=== PATIENT | female | born 1985 | race Caucasian/White ===

== ENCOUNTER 2016-04-11 10:24 | Emergency (ER) | payer SELFPAY ==
--- NOTE | 2016-04-11 11:25 | ED ---
General Adult HPI - General Chief complaint: Skin/Abscess/Foreign Body Stated complaint: ITCHY RASH ALL OVER X 1 DAY Time Seen by Provider: 04/11/16 11:11 Source: patient, RN notes reviewed Mode of arrival: ambulatory Limitations: no limitations - History of Present Illness Initial comments: Patient 31-year-old female who presents emergency room today with a chief complaint of rash and itching. Does admit that it started to the right shoulder. States that it spread now to her lower back and upper extremities. Patient states very itchy tried Benadryl yesterday little relief. Denies any contacts. Denies any other complaints. Patient denies any recent fever, chills , shortness of breath, chest pain, back pain, abdominal pain, nausea or vomiting , numbness or tingling, dysuria or hematuria, constipation or diarrhea, headaches or visual changes, or any other complaints. - Related Data Previous Rx's Medication Instructions Recorded Acetaminophen-Codeine 300-30mg 1 - 2 each PO Q4HR PRN #30 tab 11/09/15 [Tylenol w/codeine #3] Ibuprofen [Motrin] 600 mg PO Q6HR PRN #40 tab 11/09/15 Famotidine [Pepcid] 20 mg PO BID #20 tablet 04/11/16 diphenhydrAMINE [Benadryl] 1 - 2 tab PO Q6HR PRN #30 capsule 04/11/16 predniSONE 60 mg PO DAILY 5 Days 04/11/16 Allergies Allergy/AdvReac Type Severity Reaction Status Date / Time No Known Allergies Allergy Verified 10/12/15 20:46 Review of Systems ROS Statement: Those systems with pertinent positive or pertinent negative responses have been documented in the HPI. ROS Other: All systems not noted in ROS Statement are negative. Past Medical History Past Medical History: No Reported History History of Any Multi-Drug Resistant Organisms: None Reported Past Surgical History: Tonsillectomy Past Anesthesia/Blood Transfusion Reactions: No Reported Reaction Past Psychological History: No Psychological Hx Reported Smoking Status: Current every day smoker Past Alcohol Use History: None Reported Past Drug Use History: None Reported - Past Family History Father Family Medical History: No Reported History General Exam - General Exam Comments Initial Comments: General: The patient is awake and alert, in no distress, and does not appear acutely ill. Eye: Pupils are equal, round and reactive to light, extra-ocular movements are intact. No nystagmus. There is normal conjunctiva bilaterally. No signs of icterus. Ears, nose, mouth and throat: There are moist mucous membranes and no oral lesions. Neck: The neck is supple, there is no tenderness or JVD. Cardiovascular: There is a regular rate and rhythm. No murmur, rub or gallop is appreciated. Respiratory: Lungs are clear to auscultation, respirations are non-labored, breath sounds are equal. No wheezes, stridor, rales, or rhonchi. Musculoskeletal: Normal ROM, no tenderness. Strength 5/5. Sensation intact. Pulses equal bilaterally 2+. Neurological: A&O x 3. CN II-XII intact, There are no obvious motor or sensory deficits. Coordination appears grossly intact. Speech is normal. Skin: Red raised rash consistent with hives. Psychiatric: Cooperative, appropriate mood & affect, normal judgment. Limitations: no limitations Course Vital Signs 04/11/16 10:42 Temperature 98.3 F Pulse Rate 89 Respiratory 20 Rate Blood Pressure 120/73 O2 Sat by Pulse 98 Oximetry Medical Decision Making - Medical Decision Making Patient will be treated with Benadryl, Pepcid, steroids. Advised follow-up family doctor return if any symptoms increase worsen. Disposition Clinical Impression: Urticaria Disposition: HOME SELF-CARE Condition: Good Instructions: Urticaria (ED) Additional Instructions: Please use medication as discussed. Please follow-up with family doctor in the next 2 days of symptoms have not improved. Please return to emergency room if the symptoms increase or worsen or for any other concerns. Prescriptions: Famotidine [Pepcid] 20 mg PO BID #20 tablet diphenhydrAMINE [Benadryl] 1 - 2 tab PO Q6HR PRN #30 capsule PRN Reason: Allergic Reaction predniSONE 60 mg PO DAILY 5 Days Time of Disposition: 11:25
[2016-04-11 12:22] VITALS: BP 124/77; PULSE 75; RESP 14; TEMP 98.5
== END 2016-04-11 12:22 | disposition home or self-care (01) ==
LOC: EC 10:24
DX: L50.9 Urticaria, unspecified (principal); F17.200 Nicotine dependence, unspecified, uncomplicated
CPT/HCPCS: 99282

== ENCOUNTER 2016-07-10 09:07 | Emergency (ER) | payer OTHER ==
[2016-07-10 09:11] VITALS: BP 125/77; PULSE 94; RESP 16; TEMP 98.3
--- NOTE | 2016-07-10 09:57 | ED ---
General Adult HPI - General Chief complaint: ENT Stated complaint: SORE THROAT Time Seen by Provider: 07/10/16 09:13 Source: patient, RN notes reviewed Mode of arrival: ambulatory Limitations: no limitations - History of Present Illness Initial comments: Patient 31-year-old female who presents emergency room today with multiple complaints. She does admit that she has a sore throat that started this morning her children home with diagnosis strep throat. She also admits that she has bad wisdom tooth on the right lower jaw. States she was at the dentist the other day and was told that she would need an oral surgeon to have it removed. Patient denies any other complaints or symptoms at this time. Patient denies any recent fever, chills, shortness of breath, chest pain, back pain, abdominal pain, nausea or vomiting, numbness or tingling, dysuria or hematuria, constipation or diarrhea, headaches or visual changes, or any other complaints. - Related Data Home Medications Medication Instructions Recorded Confirmed Acetaminophen Tab [Tylenol Tab] 650 mg PO Q4H PRN 07/10/16 07/10/16 Ibuprofen [Motrin] 400 - 800 mg PO Q6HR PRN 07/10/16 07/10/16 Previous Rx's Medication Instructions Recorded Amoxicillin 500 mg PO Q8H 10 Days 07/10/16 Allergies Allergy/AdvReac Type Severity Reaction Status Date / Time No Known Allergies Allergy Verified 07/10/16 09:25 Review of Systems ROS Statement: Those systems with pertinent positive or pertinent negative responses have been documented in the HPI. ROS Other: All systems not noted in ROS Statement are negative. Past Medical History Past Medical History: No Reported History History of Any Multi-Drug Resistant Organisms: None Reported Past Surgical History: Tonsillectomy Past Anesthesia/Blood Transfusion Reactions: No Reported Reaction Past Psychological History: No Psychological Hx Reported Smoking Status: Current every day smoker Past Alcohol Use History: None Reported Past Drug Use History: None Reported - Past Family History Father Family Medical History: No Reported History General Exam - General Exam Comments Initial Comments: General: The patient is awake and alert, in no distress, and does not appear acutely ill. Eye: Pupils are equal, round and reactive to light, extra-ocular movements are intact. No nystagmus. There is normal conjunctiva bilaterally. No signs of icterus. Ears, nose, mouth and throat: There are moist mucous membranes and no oral lesions. Mild redness to the posterior pharynx. Patient does have old fracture of tooth #32. Locally tender in this area with no sign of an abscess. Uvula midline. She swallows without any difficulty. Neck: The neck is supple, there is no tenderness or JVD. Cardiovascular: There is a regular rate and rhythm. No murmur, rub or gallop is appreciated. Respiratory: Lungs are clear to auscultation, respirations are non-labored, breath sounds are equal. No wheezes, stridor, rales, or rhonchi. Musculoskeletal: Normal ROM, no tenderness. Strength 5/5. Sensation intact. Pulses equal bilaterally 2+. Neurological: A&O x 3. CN II-XII intact, There are no obvious motor or sensory deficits. Coordination appears grossly intact. Speech is normal. Skin: Skin is warm and dry and no rashes or lesions are noted. Psychiatric: Cooperative, appropriate mood & affect, normal judgment. Limitations: no limitations Course Vital Signs 07/10/16 09:09 Temperature 98.3 F Pulse Rate 94 Respiratory 16 Rate Blood Pressure 125/77 O2 Sat by Pulse 99 Oximetry Medical Decision Making - Medical Decision Making Patient will be covered with antibiotics that she's had family members at home diagnosed with strep throat along with antibiotic for her dental pain. Advised close follow-up or return if symptoms increase or worsen. Disposition Clinical Impression: Pharyngitis, Pain, dental Disposition: HOME SELF-CARE Condition: Good Instructions: Toothache (ED) Additional Instructions: Please use medication as discussed. Please follow-up with family doctor in the next 2 days of symptoms have not improved. Please return to emergency room if the symptoms increase or worsen or for any other concerns. Prescriptions: Amoxicillin 500 mg PO Q8H 10 Days Referrals: None,Stated [Primary Care Provider] - 1-2 days Dunia Self MD [STAFF PHYSICIAN] - 1-2 days Time of Disposition: 09:56
== END 2016-07-10 10:08 | disposition home or self-care (01) ==
LOC: EC 09:07
DX: J02.9 Acute pharyngitis, unspecified (principal); K08.89 Other specified disorders of teeth and supporting structures; F17.200 Nicotine dependence, unspecified, uncomplicated
CPT/HCPCS: 99282

== ENCOUNTER 2017-07-25 16:54 | Emergency (ER) | payer OTHER ==
[2017-07-25 17:03] VITALS: RESP 18
[2017-07-25] MEDS ORDERED: PENICILLIN G BENZATHINE 1,200,000 UNIT/2 ML SYRINGE IM STA (17:27)
--- NOTE | 2017-07-25 17:33 | ED ---
General Adult HPI - General Chief complaint: Dental/Oral Stated complaint: FACIAL SWELLING Time Seen by Provider: 07/25/17 17:12 Source: patient, RN notes reviewed Mode of arrival: ambulatory Limitations: no limitations - History of Present Illness Initial comments: Patient 32-year-old female presented to the emergency room today with a chief complaint of increased dental swelling and pain. Patient does admit that does have tenderness over tooth #18. She states she did go to the [facility] had a CAT scan obtained 2 days ago. She states that this scan was negative and she was started on antibiotics. Patient states that the area is not improved over the last 2 days. She is had a total of 4 doses of Augmentin. Patient denies any other complaints. Patient denies any recent fever, chills, shortness of breath, chest pain, back pain, abdominal pain, nausea or vomiting, numbness or tingling, headaches or visual changes, or any other complaints. - Related Data Home Medications Medication Instructions Recorded Confirmed Acetaminophen Tab [Tylenol Tab] 650 mg PO Q4H PRN 07/10/16 07/10/16 Ibuprofen [Motrin] 400 - 800 mg PO Q6HR PRN 07/10/16 07/10/16 Previous Rx's Medication Instructions Recorded Amoxicillin 500 mg PO Q8H 10 Days day 07/10/16 Clindamycin HCl [Cleocin] 300 mg PO Q6HR #40 cap 07/25/17 predniSONE 50 mg PO DAILY #3 tab 07/25/17 Allergies Allergy/AdvReac Type Severity Reaction Status Date / Time No Known Allergies Allergy Verified 07/25/17 17:00 Review of Systems ROS Statement: Those systems with pertinent positive or pertinent negative responses have been documented in the HPI. ROS Other: All systems not noted in ROS Statement are negative. Past Medical History Past Medical History: No Reported History History of Any Multi-Drug Resistant Organisms: None Reported Past Surgical History: Tonsillectomy Past Anesthesia/Blood Transfusion Reactions: No Reported Reaction Past Psychological History: No Psychological Hx Reported Smoking Status: Current every day smoker Past Alcohol Use History: None Reported Past Drug Use History: None Reported - Past Family History Father Family Medical History: No Reported History General Exam - General Exam Comments Initial Comments: General: The patient is awake and alert, in no distress, and does not appear acutely ill. Eye: Pupils are equal, round and reactive to light, extra-ocular movements are intact. No nystagmus. There is normal conjunctiva bilaterally. No signs of icterus. Ears, nose, mouth and throat: There are moist mucous membranes and no oral lesions. Tender palpation over tooth #18. Tender in the gumline. No sign of abscess to drain. Uvula midline. Patient swallows without any difficulty. Neck: The neck is supple, there is no tenderness or JVD. Musculoskeletal: Normal ROM, no tenderness. Strength 5/5. Sensation intact. Pulses equal bilaterally 2+. Neurological: A&O x 3. CN II-XII intact, There are no obvious motor or sensory deficits. Coordination appears grossly intact. Speech is normal. Skin: Skin is warm and dry and no rashes or lesions are noted. Psychiatric: Cooperative, appropriate mood & affect, normal judgment. Limitations: no limitations Course Vital Signs 07/25/17 17:00 Temperature 98.8 F Pulse Rate 111 H Respiratory 18 Rate Blood Pressure 123/74 O2 Sat by Pulse 99 Oximetry Medical Decision Making - Medical Decision Making Options were discussed about IV antibiotics versus continued outpatient treatment. Patient's had a total of 4 doses of outpatient antibiotics at this time. She states she's been no improvement. Patient will be given shot of antibiotics here in the emergency room. Patient will be given a prescription for clindamycin advised continue with present prescribed antibiotics. Advised close follow up with dentist over the next 2 days return to emergency room if any symptoms continue and increase or worsen or for any other concerns. Disposition Clinical Impression: Dental abscess Disposition: HOME SELF-CARE Condition: Good Instructions: Dental Abscess (ED) Additional Instructions: Please use medication as discussed. Please follow-up with family doctor in the next 2 days of symptoms have not improved. Please return to emergency room if the symptoms increase or worsen or for any other concerns. Prescriptions: Clindamycin HCl [Cleocin] 300 mg PO Q6HR #40 cap predniSONE 50 mg PO DAILY #3 tab Is patient prescribed a controlled substance at d/c from ED?: No Referrals: Mariya Logan III, MD [Primary Care Provider] - 1-2 days Time of Disposition: 17:30
[2017-07-25 18:39] VITALS: BP 122/72; PULSE 92; TEMP 98.9
== END 2017-07-25 18:39 | disposition home or self-care (01) ==
LOC: EC 16:54
DX: K04.7 Periapical abscess without sinus (principal); F17.200 Nicotine dependence, unspecified, uncomplicated
CPT/HCPCS: 99283; 96372; J0561

== ENCOUNTER 2018-06-03 13:11 | Observation (INO) | payer OTHER ==
--- NOTE | 2018-06-03 15:03 | XR ---
EXAMINATION TYPE: XR chest 2V DATE OF EXAM: 06/03/2018 COMPARISON: 05/07/2013 HISTORY: 33-year-old female with difficulty breathing and shortness of breath TECHNIQUE: PA and lateral views FINDINGS: Heart normal size. Aorta and pulmonary vasculature are within normal limits. No consolidation or pleu ral effusion. IMPRESSION: No acute cardiopulmonary process.
--- NOTE | 2018-06-03 15:04 | ED ---
SOB HPI <Juno Cabrera - Last Filed: 06/03/18 16:06> - General Source: patient, RN notes reviewed Mode of arrival: ambulatory Limitations: no limitations <Lio Howard - Last Filed: 06/03/18 16:08> - General Chief Complaint: Shortness of Breath Stated Complaint: SOB, back pain Time Seen by Provider: 06/03/18 14:00 - History of Present Illness Initial Comments: 33-year-old female presents emergency department chief shortness of breath. Patient states it started 1 week ago has progressively worsen. Patient has not developed back pain which started on her left side, right side now. Patient was seen at [facility] few days ago and was told with emergency from secondary to elevated heart rate of 146. Patient has no history of PE or DVT. Denies any cardiac disease. She is a daily smoker. Patient denies any recent URI symptoms. Patient denies fever, chills, headache, dizziness. Patient states symptoms are worse with exertion. (Lio Howard) - Related Data Home Medications Medication Instructions Recorded Confirmed Acetaminophen Tab [Tylenol Tab] 650 mg PO Q4H PRN 07/10/16 06/03/18 Allergies Allergy/AdvReac Type Severity Reaction Status Date / Time No Known Allergies Allergy Verified 06/03/18 14:07 Review of Systems ROS Other: All systems not noted in ROS Statement are negative. <Juno Cabrera - Last Filed: 06/03/18 16:06> ROS Other: All systems not noted in ROS Statement are negative. <Lio Howard - Last Filed: 06/03/18 16:08> ROS Statement: Those systems with pertinent positive or pertinent negative responses have been documented in the HPI. Past Medical History Past Medical History: No Reported History History of Any Multi-Drug Resistant Organisms: None Reported Past Surgical History: Tonsillectomy Past Anesthesia/Blood Transfusion Reactions: No Reported Reaction Past Psychological History: No Psychological Hx Reported Smoking Status: Current every day smoker Past Alcohol Use History: None Reported Past Drug Use History: None Reported - Past Family History Father Family Medical History: No Reported History <Lio Howard - Last Filed: 06/03/18 16:08> General Exam Limitations: no limitations General appearance: alert, in no apparent distress Head exam: Present: atraumatic, normocephalic, normal inspection Eye exam: Present: normal appearance, PERRL, EOMI. Absent: scleral icterus, conjunctival injection, periorbital swelling ENT exam: Present: normal exam, normal oropharynx, mucous membranes moist Neck exam: Present: normal inspection. Absent: tenderness, meningismus, lymph adenopathy Respiratory exam: Present: normal lung sounds bilaterally. Absent: respiratory distress, wheezes, rales, rhonchi, stridor Cardiovascular Exam: Present: regular rate, normal rhythm, normal heart sounds. Absent: systolic murmur, diastolic murmur, rubs, gallop, clicks Extremities exam: Absent: pedal edema, joint swelling, calf tenderness Neurological exam: Present: alert, oriented X3, CN II-XII intact, reflexes normal. Absent: motor sensory deficit Skin exam: Present: warm, dry, intact, normal color. Absent: rash <Lio Howard - Last Filed: 06/03/18 16:08> Course Vital Signs 06/03/18 06/03/18 13:29 14:32 Temperature 98.5 F Pulse Rate 96 Respiratory 18 25 H Rate Blood Pressure 103/67 O2 Sat by Pulse 100 Oximetry Medical Decision Making - Lab Data Result diagrams: 06/03/18 14:30 06/03/18 14:30 <Juno Cabrera - Last Filed: 06/03/18 16:06> - Lab Data Result diagrams: 06/03/18 14:30 06/03/18 14:30 <Lio Howard - Last Filed: 06/03/18 16:08> - Medical Decision Making Case was discussed with JAVED Vaca. Chart and results reviewed. Case was discussed with Dr. jang, covering for Dr. Logan, who will admit. Cardiology will be placed on consult. (Juno Cabrera) 33-year-old female presented for exertional shortness of breath. Patient is to get [place] tachycardic during ambulation. Patient had pulse ox of upper 90s. Patient will be admitted for exertional shortness of breath, however echo and cardiology evaluation. (Lio Howard) - Lab Data Lab Results 06/03/18 06/03/18 06/03/18 Range/Units 14:30 14:30 14:30 WBC 8.4 (3.8-10.6) k/uL RBC 4.40 (3.80-5.40) m/uL Hgb 13.5 (11.4-16.0) gm/dL Hct 41.1 (34.0-46.0) % MCV 93.5 (80.0-100.0) fL MCH 30.7 (25.0-35.0) pg MCHC 32.9 (31.0-37.0) g/dL RDW 14.0 (11.5-15.5) % Plt Count 316 (150-450) k/uL Neutrophils % 67 % Lymphocytes % 26 % Monocytes % 4 % Eosinophils % 2 % Basophils % 1 % Neutrophils # 5.6 (1.3-7.7) k/uL Lymphocytes # 2.2 (1.0-4.8) k/uL Monocytes # 0.3 (0-1.0) k/uL Eosinophils # 0.2 (0-0.7) k/uL Basophils # 0.1 (0-0.2) k/uL PT 10.5 (9.0-12.0) sec INR 1.0 (<1.2) APTT 26.4 (22.0-30.0) sec D-Dimer 0.46 (<0.60) mg/L FEU Sodium 141 (137-145) mmol/L Potassium 4.4 (3.5-5.1) mmol/L Chloride 111 H (98-107) mmol/L Carbon Dioxide 23 (22-30) mmol/L Anion Gap 7 mmol/L BUN 11 (7-17) mg/dL Creatinine 0.56 (0.52-1.04) mg/dL Est GFR (CKD-EPI)AfAm >90 (>60 ml/min/1.73 sqM) Est GFR (CKD-EPI)NonAf >90 (>60 ml/min/1.73 sqM) Glucose 92 (74-99) mg/dL Calcium 9.3 (8.4-10.2) mg/dL Magnesium 1.9 (1.6-2.3) mg/dL Total Bilirubin 0.5 (0.2-1.3) mg/dL AST 13 L (14-36) U/L ALT 16 (9-52) U/L Alkaline Phosphatase 51 (38-126) U/L Troponin I (0.000-0.034) ng/mL NT-Pro-B Natriuret Pep pg/mL Total Protein 6.7 (6.3-8.2) g/dL Albumin 4.2 (3.5-5.0) g/dL 06/03/18 06/03/18 Range/Units 14:30 14:30 WBC (3.8-10.6) k/uL RBC (3.80-5.40) m/uL Hgb (11.4-16.0) gm/dL Hct (34.0-46.0) % MCV (80.0-100.0) fL MCH (25.0-35.0) pg MCHC (31.0-37.0) g/dL RDW (11.5-15.5) % Plt Count (150-450) k/uL Neutrophils % % Lymphocytes % % Monocytes % % Eosinophils % % Basophils % % Neutrophils # (1.3-7.7) k/uL Lymphocytes # (1.0-4.8) k/uL Monocytes # (0-1.0) k/uL Eosinophils # (0-0.7) k/uL Basophils # (0-0.2) k/uL PT (9.0-12.0) sec INR (<1.2) APTT (22.0-30.0) sec D-Dimer (<0.60) mg/L FEU Sodium (137-145) mmol/L Potassium (3.5-5.1) mmol/L Chloride (98-107) mmol/L Carbon Dioxide (22-30) mmol/L Anion Gap mmol/L BUN (7-17) mg/dL Creatinine (0.52-1.04) mg/dL Est GFR (CKD-EPI)AfAm (>60 ml/min/1.73 sqM) Est GFR (CKD-EPI)NonAf (>60 ml/min/1.73 sqM) Glucose (74-99) mg/dL Calcium (8.4-10.2) mg/dL Magnesium (1.6-2.3) mg/dL Total Bilirubin (0.2-1.3) mg/dL AST (14-36) U/L ALT (9-52) U/L Alkaline Phosphatase (38-126) U/L Troponin I <0.012 (0.000-0.034) ng/mL NT-Pro-B Natriuret Pep 16 pg/mL Total Protein (6.3-8.2) g/dL Albumin (3.5-5.0) g/dL - EKG Data EKG Comments: EKG performed at 14:30 normal sinus rhythm rate of 82 WA 132 QRS 92 QT/QTC 354/413 (Lio Howard) Disposition <Juno Cabrera - Last Filed: 06/03/18 16:06> <Lio Howard - Last Filed: 06/03/18 16:08> Clinical Impression: Exertional shortness of breath, Tachycardia Disposition: ADMITTED IP TO THIS HOSP Condition: Fair Referrals: Mariya Logan III, MD [Primary Care Provider] - 1-2 days
[2018-06-03 15:32] LABS: Basophils # (A) 0.1 k/uL (0-0.2); Basophils % (A) 1 %; Eosinophils # (A) 0.2 k/uL (0-0.7); Eosinophils % (A) 2 %; HCT 41.1 % (34.0-46.0); HGB 13.5 gm/dL (11.4-16.0); Lymphocytes # (A) 2.2 k/uL (1.0-4.8); Lymphocytes % (A) 26 %; MCH 30.7 pg (25.0-35.0); MCHC 32.9 g/dL (31.0-37.0); MCV 93.5 fL (80.0-100.0); Mean Platelet Volume 7.7; Monocytes # (A) 0.3 k/uL (0-1.0); Monocytes % (A) 4 %; Neutrophils # (A) 5.6 k/uL (1.3-7.7); Neutrophils % (A) 67 %; Platelet Count 316 k/uL (150-450); WBC 8.4 k/uL (3.8-10.6)
[2018-06-03 15:44] LABS: ALT 16 U/L (9-52); AST 13 U/L (14-36); Albumin 4.2 g/dL (3.5-5.0); Alkaline Phosphatase 51 U/L (38-126); Anion Gap 7 mmol/L; Blood Urea Nitrogen 11 mg/dL (7-17); Calcium 9.3 mg/dL (8.4-10.2); Carbon Dioxide 23 mmol/L (22-30); Chloride 111 mmol/L (98-107); Glucose 92 mg/dL (74-99); Magnesium 1.9 mg/dL (1.6-2.3); Potassium 4.4 mmol/L (3.5-5.1); Sodium 141 mmol/L (137-145); Total Bilirubin 0.5 mg/dL (0.2-1.3); Total Protein 6.7 g/dL (6.3-8.2)
[2018-06-03 15:50] LABS: D-Dimer 0.46 mg/L FEU (<0.60); Partial Thromboplastin Time 26.4 sec (22.0-30.0); Prothrombin Time 10.5 sec (9.0-12.0)
[2018-06-03] MEDS ORDERED: ACETAMINOPHEN TAB 325 MG TAB PO PRN (16:09)
[2018-06-03] MEDS: MORPHINE SULFATE 4 MG/ML SYRINGE IVP PRN ×2 (16:51→20:18)
[2018-06-03] MEDS: SODIUM CHLORIDE 0.9% 1,000 ML IV SCH (16:52)
--- NOTE | 2018-06-03 19:29 | P.HPIM ---
History of Present Illness this is a pleasant 33 yo F with no significant past medical history and on no medicaiton who present with severe lower back pain on both sides of two days duration , severe non specific pain , with no associated change in urine or b owel habits , no leg weakness, no urine or bowel incontinence. no fever. however pt is complains also from dyspnea more with exertion and dizziness i counseled pt to check her preg test however she refused stating she has contraceptive injection, risks of teratogenicity is explained for the pt from test and she verbalized understanding , she still refused the test on admission her vitals look stable, her cbc, bmp and liver enzymes were unremarkable, her D-Dimer is negative. Review of Systems CONSTITUTIONAL: No fever, no malaise, no fatigue. HEENT: No recent visual problems or hearing problems. Denied any sore throat. CARDIOVASCULAR: No orthopnea, PND, no palpitations, no syncope. PULMONARY: No shortness of breath, no cough, no hemoptysis. GASTROINTESTINAL: No diarrhea, no nausea, no vomiting, no abdominal pain. Normoactive bowel sounds. NEUROLOGICAL: No headaches, no weakness, no numbness. HEMATOLOGICAL: Denies any bleeding or petechiae. GENITOURINARY: Denies any burning micturition, frequency, or urgency. MUSCULOSKELETAL/RHEUMATOLOGICAL: Denies any joint pain, swelling, or any muscle pain. ENDOCRINE: Denies any polyuria or polydipsia. Past Medical History Past Medical History: No Reported History History of Any Multi-Drug Resistant Organisms: None Reported Past Surgical History: Tonsillectomy Past Anesthesia/Blood Transfusion Reactions: No Reported Reaction Past Psychological History: No Psychological Hx Reported Smoking Status: Current every day smoker Past Alcohol Use History: None Reported Past Drug Use History: None Reported - Past Family History Father Family Medical History: No Reported History Medications and Allergies Home Medications Medication Instructions Recorded Confirmed Type Acetaminophen Tab [Tylenol Tab] 650 mg PO Q4H PRN 07/10/16 06/03/18 History Allergies Allergy/AdvReac Type Severity Reaction Status Date / Time No Known Allergies Allergy Verified 06/03/18 14:07 Physical Exam Vitals: Vital Signs Temp Pulse Resp BP Pulse Ox 06/03/18 14:32 25 H 06/03/18 13:29 98.5 F 96 18 103/67 100 Intake and Output 06/03/18 06/03/18 06/03/18 06:59 14:59 22:59 Other: Weight 81.647 kg GENERAL: The patient is alert and oriented x3, not in any acute distress. Well developed, well nourished. HEENT: Pupils are round and equally reacting to light. EOMI. No scleral icterus. No conjunctival pallor. Normocephalic, atraumatic. No pharyngeal erythema. No thyromegaly. CARDIOVASCULAR: S1 and S2 present. No murmurs, rubs, or gallops. PULMONARY: Chest is clear to auscultation, no wheezing or crackles. ABDOMEN: Soft, nontender, nondistended, normoactive bowel sounds. No palpable organomegaly. -MUSCULOSKELETAL: No joint swelling or deformity. bilateral lower back tenderness on the sides. EXTREMITIES: No cyanosis, clubbing, or pedal edema. NEUROLOGICAL: Gross neurological examination did not reveal any focal deficits. no weakness in lower ext 5/5. sensation is intact. meningeal signs are absent SKIN: No rashes. Results CBC & Chem 7: 06/03/18 14:30 06/03/18 14:30 Labs: Abnormal Lab Results - Last 24 Hours (Table) 06/03/18 Range/Units 14:30 Chloride 111 H (98-107) mmol/L AST 13 L (14-36) U/L Assessment and Plan Assessment: dyspnea , mainly exertional lower back pain and tenderness dizziness dehydration Plan: this is a pleasant 33 yo F who presents with back pain , dyspnea . will give some hydration , pain managment , check influenza Labs and medication were reviewed.. Continue same treatment. Continue with symptomatic treatment. Resume home medication. Monitor lytes and vitals. DVT and GI prophylaxis. Further recommendations of the clinical course of the alexi ent DVT prophylaxis: Subcutaneous heparin GI Prophylaxis: Pepcid Prognosis is guarded
[2018-06-03] MEDS: HEPARIN SODIUM,PORCINE 5,000 UNIT/ML 1 ML VIAL SQ SCH ×2 (20:18→23:14)
[2018-06-03] MEDS: FAMOTIDINE 20 MG/2 ML VIAL IV SCH (20:18)
[2018-06-04] MEDS ORDERED: HEPARIN SODIUM,PORCINE 5,000 UNIT/ML 1 ML VIAL SQ SCH
[2018-06-04] MEDS: HYDROcodone/APAP 5-325MG 1 EACH TAB PO PRN ×2 (03:41→09:53)
[2018-06-04] MEDS: FAMOTIDINE 20 MG/2 ML VIAL IV SCH ×2 (09:53→21:51)
[2018-06-04] MEDS: HEPARIN SODIUM,PORCINE 5,000 UNIT/ML 1 ML VIAL SQ SCH ×3 (09:53→23:00)
[2018-06-04 11:02] LABS: T4, Free (Free Thyroxine) 1.06 ng/dL (0.78-2.19)
--- NOTE | 2018-06-04 11:06 | P.CRDCN ---
History of Present Illness History of present illness: This is a pleasant 33-year-old female past medical history significant for chronic daily nicotine dependence. She denies history of hypertension, dyslipidemia, diabetes mellitus or coronary artery disease. She has no significant past medical history in her family. We have asked to see her in consultation secondary to palpitations and shortness of breath. She states approximately 2 weeks ago herself as well as her children suffered from influenza. I'll started feeling better approximately one week ago however she has been having symptoms of shortness of breath and palpitations with exertion. She states she can feel her heart racing fast and then she gets short of breath. She has been feeling these symptoms intermittently through the night when she would get up to go to the bathroom. She states when she lays flat the palpitations subside. She denies associated chest discomfort, nausea, vomiting or diaphoresis. EKG reveals sinus mechanism with no acute ST or T wave abnormalities noted. Chest x-ray is negative for an acute cardiopulmonary process. Laboratory data reviewed, WBC 8.4, hemoglobin 13.5, platelets 316, d-dimer 0.46, sodium 141, potassium 4.4, creatinine 0.56, magnesium 1.9, TSH 0.397 with a free T4 of 1.06. She takes no daily cardiac medications. At the time of my exam: CONSTITUTIONAL: Denies fever. Denies chills. EYES: Denies blurred vision. Denies vision changes. Denies eye pain. EARS, NOSE, MOUTH & THROAT: Denies headache. Denies sore throat. Denies ear pain. CARDIOVASCULAR: Denies chest pain. Denies shortness of breath. Denies orthopnea. Denies PND. Denies palpitations. RESPIRATORY: Denies cough. GASTROINTESTINAL: Denies abdominal pain. Denies diarrhea. Denies constipation. Denies nausea. Denies vomiting. MUSCULOSKELETAL: Denies myalgias. INTEGUMENTARY: Denies pruitis. Denies rash. NEUROLOGIC: Denies numbness. Denies tingling. Denies weakness. PSYCHIATRIC: Denies anxiety. Denies depression. ENDOCRINE: Denies fatigue. Denies weight change. Denies polydipsia. Denies polyurina. GENITOURINARY: Denies burning, hematuria or urgency with micturation. HEMATOLOGIC: Denies history of anemia. Denies bleeding. Blood pressure 92/57 heart rate 66 afebrile maintaining oxygen saturation on room air GENERAL: This is a 33-year-old female in no apparent distress at the time of my examination. HEENT: Head is atraumatic, normocephalic. Pupils are equal, round. Sclerae anicteric. Conjunctivae are clear. Mucous membranes of the mouth are moist. Neck is supple. There is no jugular venous distention. No carotid bruit is heard. LUNGS: Clear to auscultation no wheezes, rales or rhonchi. No chest wall tenderness is noted on palpation or with deep breathing. HEART: Regular rate and rhythm without murmurs, rubs or gallops. S1 and S2 heard. ABDOMEN: Soft, nontender. Bowel sounds are heard. No organomegaly noted. EXTREMITIES: No evidence of peripheral edema and no calf tenderness noted. VASCULAR: Radial and dorsalis pedis pulses palpated, no evidence of clubbing. NEUROLOGIC: Patient is awake, alert and oriented x3. ASSESSMENT Palpitations Chronic nicotine dependence PLAN Thyroid panel has been requested and reviewed, to be handled by the primary care team. Obtain 2-D echocardiogram and Doppler study to assess cardiac structure and function. Overall she has been feeling these palpitations and heart racing through the night and telemetry tracings have been unremarkable. There is no evidence for an acute arrhythmia. Advised her to increase her oral intake of water, avoid caffeine and quit smoking. Thank you kindly for this consultation. Nurse Practitioner note has been reviewed, I agree with a documented findings and plan of care. Patient was seen and examined. Past Medical History Past Medical History: No Reported History History of Any Multi-Drug Resistant Organisms: None Reported Past Surgical History: Tonsillectomy Past Anesthesia/Blood Transfusion Reactions: No Reported Reaction Past Psychological History: No Psychological Hx Reported Smoking Status: Current every day smoker Past Alcohol Use History: None Reported Past Drug Use History: None Reported - Past Family History Father Family Medical History: No Reported History Medications and Allergies Home Medications Medication Instructions Recorded Confirmed Type Acetaminophen Tab [Tylenol Tab] 650 mg PO Q4H PRN 07/10/16 06/03/18 History Allergies Allergy/AdvReac Type Severity Reaction Status Date / Time No Known Allergies Allergy Verified 06/03/18 14:07 Physical Exam Vitals: Vital Signs Temp Pulse Pulse Resp BP BP Pulse Ox 06/04/18 07:10 98.6 F 66 18 92/57 98 06/04/18 03:55 98.5 F 73 16 103/68 98 06/04/18 03:33 16 06/03/18 23:56 98.6 F 76 16 101/64 100 06/03/18 23:11 16 06/03/18 19:52 16 06/03/18 19:42 98.0 F 83 16 107/70 100 06/03/18 16:32 80 18 115/71 98 06/03/18 14:32 88 18 117/81 97 06/03/18 13:29 98.5 F 96 18 103/67 100 Intake and Output 06/03/18 06/04/18 06/04/18 22:59 06:59 14:59 Intake Total 375 Balance 375 Intake: IV 375 Sodium Chloride 0.9% 1, 375 000 ml @ 75 mls/hr IV . [id number] [facility] Rx#:[id number] Other: Voiding Method Toilet Toilet # Voids 2 Results 06/03/18 14:30 06/03/18 14:30 Cardiac Enzymes 06/03/18 06/03/18 Range/Units 14:30 14:30 AST 13 L (14-36) U/L Troponin I <0.012 (0.000-0.034) ng/mL Coagulation 06/03/18 Range/Units 14:30 PT 10.5 (9.0-12.0) sec APTT 26.4 (22.0-30.0) sec CBC 06/03/18 Range/Units 14:30 WBC 8.4 (3.8-10.6) k/uL RBC 4.40 (3.80-5.40) m/uL Hgb 13.5 (11.4-16.0) gm/dL Hct 41.1 (34.0-46.0) % Plt Count 316 (150-450) k/uL Comprehensive Metabolic Panel 06/03/18 Range/Units 14:30 Sodium 141 (137-145) mmol/L Potassium 4.4 (3.5-5.1) mmol/L Chloride 111 H (98-107) mmol/L Carbon Dioxide 23 (22-30) mmol/L BUN 11 (7-17) mg/dL Creatinine 0.56 (0.52-1.04) mg/dL Glucose 92 (74-99) mg/dL Calcium 9.3 (8.4-10.2) mg/dL AST 13 L (14-36) U/L ALT 16 (9-52) U/L Alkaline Phosphatase 51 (38-126) U/L Total Protein 6.7 (6.3-8.2) g/dL Albumin 4.2 (3.5-5.0) g/dL Current Medications Generic Name Dose Route Start Last Admin Trade Name Freq PRN Reason Stop Dose Admin Acetaminophen 650 mg 06/03/18 16:09 Tylenol Tab PO Q6HR PRN Mild Pain or Fever > 100.5 Hydrocodone Bitart/Acetaminophen 1 each 06/03/18 16:09 06/04/18 03:41 Morrow 5-325 PO 1 each Q4HR PRN Administration Moderate Pain Famotidine 20 mg 06/03/18 21:00 06/03/18 20:18 Pepcid IV 20 mg Q12HR FLACO Administration Heparin Sodium (Porcine) 5,000 unit 06/03/18 19:30 06/03/18 23:14 Heparin SQ Not Given Q8HR FLACO Sodium Chloride 1,000 mls @ 75 mls/hr 06/03/18 16:45 06/03/18 16:52 Saline 0.9% IV 75 mls/hr .[id number] FLACO Administration Morphine Sulfate 4 mg 06/03/18 16:19 06/03/18 20:18 Morphine Sulfate (Inj) IVP 4 mg Q4HR PRN Administration Pain Intake and Output 06/03/18 06/04/18 06/04/18 22:59 06:59 14:59 Intake Total 375 Balance 375 Intake: IV 375 Sodium Chloride 0.9% 1, 375 000 ml @ 75 mls/hr IV . [id number] [facility] Rx#:[id number] Other: Voiding Method Toilet Toilet # Voids 2 06/03/18 14:30 06/03/18 14:30
--- NOTE | 2018-06-04 12:45 | ECHOF ---
Referral Reason:sob MEASUREMENTS -------- HEIGHT: 162.6 cm WEIGHT: 81.6 kg BP: 103/68 IVSd: 0.9 cm (0.6 - 1.1) LVIDd: 4.8 cm (3.9 - 5.3) LVPWd: 1.2 cm (0.6 - 1.1) IVSs: 1.4 cm LVIDs: 2.9 cm LVPWs: 1.4 cm LA Diam: 3.2 cm (2.7 - 3.8) MV EXCURSION: 19.783 mm (> 18.000) MV EF SLOPE: 73 mm/s (70 - 150) EPSS: 0.3 cm MV E Andre: 0.74 m/s MV DecT: 127 ms MV A Andre: 0.63 m/s MV E/A Ratio: 1.17 RAP: 5.00 mmHg RVSP: 20.32 mmHg FINDINGS -------- Sinus rhythm. This was a technically good study. LV size, wall thickness and systolic function are normal, with an EF greater than 55%. The left catrachito tricular size is normal. The right ventricle is normal in size. The left atrial size is normal. The right atrial size is normal. Interatrial and interventricular septum intact. The aortic valve is trileaflet, and appears structurally normal. No aortic stenosis or regurgitation. Mild mitral regurgitation is present. Mild tricuspid regurgitation present. There is no evidence of pulmonary hypertension. The right v entricular systolic pressure, as measured by Doppler, is 20.32mmHg. There is no pulmonic regurgitation present. The aortic root size is normal. Normal inferior vena cava with normal inspiratory collapse consistent with estimated right atrial pre ssure of 5 mmHg. There is a trivial pericardial effusion present. CONCLUSIONS -------- 1. LV size, wall thickness and systolic function are normal, with an EF greater than 55%. 2. The left ventricular size is normal. 3. The right ventricle is normal in size. 4. The left atrial size is normal. 5. The right atrial size is normal. 6. Interatrial and interventricular septum intact. 7. The aortic valve is trileaflet, and appears structurally normal. No aortic stenosis or regurgitati on. 8. Mild mitral regurgitation is present. 9. Mild tricuspid regurgitation present. 10. There is no evidence of pulmonary hypertension. 11. The right ventricular systolic pressure, as measured by Doppler, is 20.32mmHg. 12. There is no pulmonic regurgitation present. 13. The aortic root size is normal. 14. Normal inferior vena cava with normal inspiratory collapse consistent with estimated right atrial pressure of 5 mmHg. 15. There is a trivial pericardial effusion present. [employer]: Divine Mueller RDCS
[2018-06-04] MEDS: HYDROcodone/APAP 10-325MG 1 EACH TAB PO PRN ×3 (14:59→23:00)
--- NOTE | 2018-06-04 16:40 | P.PN ---
Subjective this is a pleasant 33 yo F with no significant past medical history and on no medicaiton who present with severe lower back pain on both sides of two days duration , severe non specific pain , with no associated change in urine or bowel habits , no leg weakness, no urine or bowel incontinence. no fever. however pt is complains also from dyspnea more with exertion and dizziness i counseled pt to check her preg test however she refused stating she has contraceptive injection, risks of teratogenicity is explained for the pt from test and she verbalized understanding , she still refused the test on admission her vitals look stable, her cbc, bmp and liver enzymes were unremarkable, her D-Dimer is negative. 06/04/2018 Patient showing slight improvement in her pain control, she is more comfortable at rest however she becomes more symptomatic when she tried to move, hemodynamically she is a stable. Patient has been evaluated by cardiology team who cleared her for discharge after checking her echocardiogram. We will increase her pain medication, and ask physical therapy to evaluate the patient Objective - Vital Signs Vital signs: Vital Signs Temp 98.3 F 06/04/18 15:40 Pulse 71 06/04/18 15:40 Resp 18 06/04/18 15:40 BP 108/69 06/04/18 15:40 Pulse Ox 100 06/04/18 15:40 Intake & Output 06/03/18 06/04/18 06/04/18 18:59 06:59 18:59 Intake Total 375 400 Balance 375 400 Weight 81.647 kg Intake: IV 375 Sodium Chloride 0.9% 1, 375 000 ml @ 75 mls/hr IV . [id number] [facility] Rx#:[id number] Oral 400 Other: Voiding Method Toilet Toilet # Voids 2 1 - Exam GENERAL: The patient is alert and oriented x3, not in any acute distress. Well developed, well nourished. HEENT: Pupils are round and equally reacting to light. EOMI. No scleral icterus. No conjunctival pallor. Normocephalic, atraumatic. No pharyngeal erythema. No thyromegaly. CARDIOVASCULAR: S1 and S2 present. No murmurs, rubs, or gallops. PULMONARY: Chest is clear to auscultation, no wheezing or crackles. ABDOMEN: Soft, nontender, nondistended, normoactive bowel sounds. No palpable o rganomegaly. -MUSCULOSKELETAL: No joint swelling or deformity. bilateral lower back tenderness on the sides. EXTREMITIES: No cyanosis, clubbing, or pedal edema. NEUROLOGICAL: Gross neurological examination did not reveal any focal deficits. no weakness in lower ext 5/5. sensation is intact. meningeal signs are absent SKIN: No rashes. - Labs CBC & Chem 7: 06/03/18 14:30 06/03/18 14:30 Labs: Abnormal Lab Results - Last 24 Hours (Table) 06/03/18 Range/Units 14:30 TSH 0.397 L (0.465-4.680) mIU/L Assessment and Plan Assessment: dyspnea , mainly exertional lower back pain and tenderness dizziness dehydration Plan: this is a pleasant 33 yo F who presents with back pain , dyspnea . will give some hydration , pain managment , check influenza Labs and medication were reviewed.. Continue same treatment. Continue with symptomatic treatment. Resume home medication. Monitor lytes and vitals. DVT and GI prophylaxis. Further recommendations of the clinical course of the patient DVT prophylaxis: Subcutaneous heparin GI Prophylaxis: Pepcid Prognosis is guarded
[2018-06-04] MEDS: SODIUM CHLORIDE 0.9% 1,000 ML IV SCH ×2 (21:56→21:57)
[2018-06-05] MEDS: HYDROcodone/APAP 10-325MG 1 EACH TAB PO PRN ×4 (02:55→15:30)
[2018-06-05] MEDS: FAMOTIDINE 20 MG/2 ML VIAL IV SCH (09:45)
[2018-06-05] MEDS: HEPARIN SODIUM,PORCINE 5,000 UNIT/ML 1 ML VIAL SQ SCH ×2 (09:46→15:31)
[2018-06-05 16:28] VITALS: BP 104/64; PULSE 69; RESP 16; TEMP 98.6
--- NOTE | 2018-06-05 17:04 | P.DS ---
Providers Date of admission: 06/03/18 16:07 Attending physician: Chino Colby MD Consults: 06/03/18 16:09 Consult Physician Urgent Consulting Provider: Reed Stone Consult Reason/Comments: Exertional shortness of breath Do you want consulting provider notified?: Yes Primary care physician: Mariya Logan [facility] Course: Diagnoses: Low back pain on both sides, mostly musculoskeletal. Improving Dyspnea on exertion and dizziness, mostly related to her back pain and anxiety. Resolved with controlling her back pain Dehydration. Resolved Difficulty walking, secondary to above. Completely resolved and patient is walking normally upon discharge Hospital course: This is a pleasant 53 years old female who presents with severe low back pain on both sides of 2-3 days duration associated with nonspecific symptoms of dizziness and dyspnea, mostly related to her pain and her dehydration. Patient was admitted to the observation unit and she was managed with parenteral hydration and pain management. Patient was treated with Narco 5-325 milligrams, however she still complained from her back pain. And after Narco increased to 10-325 mg every 4 hours her pain is controlled and it was 0/10 at certain points and more tolerable by the patient. Patient had a normal get up and go test where she couldn't ambulate easily and walked briskly without any breathing difficulty, no chest pain or dizziness. Patient felt a lot better and she wanted to go home, follow-up appointment was made for her with Dr. Logan her PCP in one week and she agrees and she said we will go to visit him on the time and date appointed for her. On the day of discharge patient has no chest pain, no dyspnea, no abdominal pain, no nausea vomiting, no change in urine or bowel habits. No fever. No weakness in arms or legs. No paresthesia/numbness. Problems and management plan were discussed with the patient and she verbalized understanding and acceptance Patient was found stable and can discharge home however she needs follow-up as an outpatient. discharge exam Gen: patient is a AAOx3, no distress CVS: S1-S2, RRR, no murmur Lungs: B/L CTA, no wheezing Abdomen: soft, no distention, no tenderness, positive bowel sounds Extremity: no leg edema or induration Musculoskeletal: Mild bilateral lower back tenderness, no tenderness in the middle. Time spent more than 35 minutes Patient Condition at Discharge: Fair Plan - Discharge Summary Discharge Rx Participant: No New Discharge Prescriptions: New Ibuprofen 600 mg PO Q8HR PRN 4 Days #12 tablet PRN Reason: Pain Lidocaine 5% Patch [Lidoderm 5% Patch] 1 patch TOPICAL DAILY 7 Days #7 patch HYDROcodone/APAP 10-325MG [[place] 10-325] 1 each PO Q6HR PRN 3 Days #12 tab PRN Reason: Pain Famotidine [Pepcid] 20 mg PO DAILY 7 Days #7 tablet Acetaminophen Tab [Tylenol] 325 mg PO Q6HR PRN 7 Days #28 tab PRN Reason: Mild Pain Or Fever > 100.5 Continue Acetaminophen Tab [Tylenol] 650 mg PO Q4H PRN PRN Reason: Pain Discharge Medication List Acetaminophen Tab [Tylenol] 650 mg PO Q4H PRN 07/10/16 [History] Acetaminophen Tab [Tylenol] 325 mg PO Q6HR PRN 7 Days #28 tab 06/05/18 [Rx] Famotidine [Pepcid] 20 mg PO DAILY 7 Days #7 tablet 06/05/18 [Rx] HYDROcodone/APAP 10-325MG [[place] 10-325] 1 each PO Q6HR PRN 3 Days #12 tab 06/05/18 [Rx] Ibuprofen 600 mg PO Q8HR PRN 4 Days #12 tablet 06/05/18 [Rx] Lidocaine 5% Patch [Lidoderm 5% Patch] 1 patch TOPICAL DAILY 7 Days #7 patch 06/05/18 [Rx] Follow up Appointment(s)/Referral(s): Mariya Logan III, MD [Primary Care Provider] - 06/10/18 6:00 pm Activity/Diet/Wound Care/Special Instructions: regular diet activity is limited till you see your doctor try to avoid twisting, lifting heavy objects or bending Discharge Disposition: HOME SELF-CARE
[2018-06-05] MEDS: SODIUM CHLORIDE 0.9% 1,000 ML IV SCH (17:15)
== END 2018-06-05 17:15 | disposition home or self-care (01) ==
LOC: EC 13:11 → 1SOBS 16:07
PROVIDERS: ADMIT Internal Medicine; ATTEND Internal Medicine
DX: M54.5 Low back pain (principal); E86.0 Dehydration; R06.09 Other forms of dyspnea; F41.9 Anxiety disorder, unspecified; R00.2 Palpitations; R26.2 Difficulty in walking, not elsewhere classified; F17.200 Nicotine dependence, unspecified, uncomplicated
CPT/HCPCS: 96361 ×3; 96372 ×3; 96375; 96376 ×3; 96374; 99285; 36415; 93005; 93306; 85379; 84439; 83880; 80053; 84443; 83735; 84484; 85025; 85610; 85730; 87502; 71046; G0378 ×3; J2270; J1644 ×3

== ENCOUNTER 2018-06-13 16:42 | Emergency (ER) | payer OTHER ==
[2018-06-13 16:47] VITALS: TEMP 99
[2018-06-13] MEDS ORDERED: SODIUM CHLORIDE 0.9% 1,000 ML IV STA (16:54)
[2018-06-13] MEDS ORDERED: MORPHINE SULFATE 4 MG/ML SYRINGE IVP STA (17:38)
--- NOTE | 2018-06-13 17:40 | ED ---
General Adult HPI - General Chief complaint: Arrhythmia/Palpitations Stated complaint: DOC, HIGH HEARTRATE, LOWER BACK PAIN Time Seen by Provider: 06/13/18 16:54 Source: patient, RN notes reviewed, old records reviewed Mode of arrival: ambulatory Limitations: no limitations - History of Present Illness Initial comments: 33-year-old female presents for evaluation of palpitations and dyspnea and back pain. Patient was admitted to the hospital within the past several weeks with chief complaint of palpitations. She states that this workup (essentially normal and was instructed to follow up as an outpatient. She was scheduled for a Holter monitor as well as x-rays of her thoracic and lumbar spine. She states that today her symptoms have worsened. She felt increasing palpitations. She's had significant lower back pain as well as mid thoracic back pain. Denies dysuria or hematuria. Denies any specific injury or trauma. She does report subjective fever and chills. Said nausea with no vomiting. No diarrhea. No lower extremity pain or swelling. She is currently on Depo-Provera, denies . - Related Data Home Medications Medication Instructions Recorded Confirmed Medroxyprogesterone Acetate 150 mg IM Q84D 06/13/18 06/13/18 [Depo-Provera] Previous Rx's Medication Instructions Recorded Famotidine [Pepcid] 20 mg PO DAILY 7 Days #7 tablet 06/05/18 Allergies Allergy/AdvReac Type Severity Reaction Status Date / Time No Known Allergies Allergy Verified 06/13/18 17:21 Review of Systems ROS Statement: Those systems with pertinent positive or pertinent negative responses have been documented in the HPI. ROS Other: All systems not noted in ROS Statement are negative. Past Medical History Past Medical History: No Reported History History of Any Multi-Drug Resistant Organisms: None Reported Past Surgical History: Tonsillectomy Past Anesthesia/Blood Transfusion Reactions: No Reported Reaction Past Psychological History: No Psychological Hx Reported Smoking Status: Current every day smoker Past Alcohol Use History: None Reported Past Drug Use History: None Reported - Past Family History Father Family Medical History: No Reported History General Exam Limitations: no limitations General appearance: alert, in no apparent distress Head exam: Present: atraumatic, normocephalic Eye exam: Present: normal appearance, PERRL ENT exam: Present: mucous membranes dry Neck exam: Present: normal inspection. Absent: tenderness, meningismus Respiratory exam: Present: normal lung sounds bilaterally. Absent: respiratory distress, wheezes Cardiovascular Exam: Present: normal rhythm, tachycardia GI/Abdominal exam: Present: soft. Absent: distended, tenderness, guarding Extremities exam: Present: normal capillary refill. Absent: pedal edema, calf tenderness Back exam: Present: normal inspection, CVA tenderness (R), CVA tenderness (L), paraspinal tenderness Neurological exam: Present: alert, oriented X3 Psychiatric exam: Present: normal affect, normal mood Skin exam: Present: warm, dry, intact. Absent: cyanosis, diaphoretic Course Vital Signs 06/13/18 06/13/18 06/13/18 16:43 18:12 18:46 Temperature 99.0 F Pulse Rate 132 H 98 Pulse Rate [ 105 H [employer] ] Respiratory 18 20 Rate Blood Pressure 127/75 121/64 O2 Sat by Pulse 97 96 Oximetry EKG Findings - EKG Comments: EKG Findings:: EKG: Sinus tachycardia, rate of 106 DE interval 124, QRS duration 82, QTC 4:30, no ST segment elevation, no signs of arrhythmia Medical Decision Making - Medical Decision Making 33-year-old female presenting with palpitations thoracic and lumbar back pain and dyspnea. Patient has nonischemic EKG normal sinus rhythm rate of 106. She has a chest x-ray which is negative for acute cardiac pulmonary disease. X-rays of the lumbar and thoracic spine were performed is negative for any acute bony abnormality. She has a normal CBC, normal CMP, troponin is negative. Urinalysis negative, urine drug screen is positive for OxyContin and benzodiazepines. D-dimer is elevated at 0.57. CT angiography was performed this is negative for pulmonary embolism. Patient reevaluated, heart rate improves. She is scheduled for a thermometer which she is getting tomorrow. She will continue with this plan. She will follow-up with her primary care physician. Return with worsening or changing symptoms. - Lab Data Result diagrams: 06/13/18 17:58 06/13/18 17:58 Lab Results 06/13/18 06/13/18 06/13/18 Range/Units 17:40 17:58 17:58 WBC 7.5 (3.8-10.6) k/uL RBC 4.51 (3.80-5.40) m/uL Hgb 13.5 (11.4-16.0) gm/dL Hct 43.0 (34.0-46.0) % MCV 95.4 (80.0-100.0) fL MCH 30.0 (25.0-35.0) pg MCHC 31.5 (31.0-37.0) g/dL RDW 14.4 (11.5-15.5) % Plt Count 301 (150-450) k/uL Neutrophils % 46 % Lymphocytes % 42 % Monocytes % 5 % Eosinophils % 3 % Basophils % 1 % Neutrophils # 3.4 (1.3-7.7) k/uL Lymphocytes # 3.2 (1.0-4.8) k/uL Monocytes # 0.4 (0-1.0) k/uL Eosinophils # 0.2 (0-0.7) k/uL Basophils # 0.1 (0-0.2) k/uL PT (9.0-12.0) sec INR (<1.2) APTT (22.0-30.0) sec D-Dimer (<0.60) mg/L FEU Sodium 139 (137-145) mmol/L Potassium 4.6 (3.5-5.1) mmol/L Chloride 112 H (98-107) mmol/L Carbon Dioxide 20 L (22-30) mmol/L Anion Gap 7 mmol/L BUN 12 (7-17) mg/dL Creatinine 0.49 L (0.52-1.04) mg/dL Est GFR (CKD-EPI)AfAm >90 (>60 ml/min/1.73 sqM) Est GFR (CKD-EPI)NonAf >90 (>60 ml/min/1.73 sqM) Glucose 74 (74-99) mg/dL Plasma Lactic Acid Francisco (0.7-2.0) mmol/L Calcium 9.1 (8.4-10.2) mg/dL Magnesium 2.0 (1.6-2.3) mg/dL Total Bilirubin 0.5 (0.2-1.3) mg/dL AST 19 (14-36) U/L ALT 23 (9-52) U/L Alkaline Phosphatase 53 (38-126) U/L Troponin I (0.000-0.034) ng/mL Total Protein 6.8 (6.3-8.2) g/dL Albumin 4.1 (3.5-5.0) g/dL TSH 0.541 (0.465-4.680) mIU/L Urine Color Yellow Urine Appearance Clear (Clear) Urine pH 6.0 (5.0-8.0) Ur Specific [place] 1.022 (1.001-1.035) Urine Protein Negative (Negative) Urine Glucose (UA) Negative (Negative) Urine Ketones Negative (Negative) Urine Blood Negative (Negative) Urine Nitrite Negative (Negative) Urine Bilirubin Negative (Negative) Urine Urobilinogen <2.0 (<2.0) mg/dL Ur Leukocyte Esterase Negative (Negative) Urine HCG, Qual (Not Detectd) Urine Opiates Screen Not Detected (NotDetected) Ur Oxycodone Screen Detected H (NotDetected) Urine Methadone Screen Not Detected (NotDetected) Ur Propoxyphene Screen Not Detected (NotDetected) Ur Barbiturates Screen Not Detected (NotDetected) U Tricyclic Antidepress Not Detected (NotDetected) Ur Phencyclidine Scrn Not Detected (NotDetected) Ur Amphetamines Screen Not Detected (NotDetected) U Methamphetamines Scrn Not Detected (NotDetected) U Benzodiazepines Scrn Detected H (NotDetected) Urine Cocaine Screen Not Detected (NotDetected) U Marijuana (THC) Screen Not Detected (NotDetected) 06/13/18 06/13/18 06/13/18 Range/Units 17:58 17:58 17:58 WBC (3.8-10.6) k/uL RBC (3.80-5.40) m/uL Hgb (11.4-16.0) gm/dL Hct (34.0-46.0) % MCV (80.0-100.0) fL MCH (25.0-35.0) pg MCHC (31.0-37.0) g/dL RDW (11.5-15.5) % Plt Count (150-450) k/uL Neutrophils % % Lymphocytes % % Monocytes % % Eosinophils % % Basophils % % Neutrophils # (1.3-7.7) k/uL Lymphocytes # (1.0-4.8) k/uL Monocytes # (0-1.0) k/uL Eosinophils # (0-0.7) k/uL Basophils # (0-0.2) k/uL PT 9.5 (9.0-12.0) sec INR 0.9 (<1.2) APTT 25.4 (22.0-30.0) sec D-Dimer 0.57 (<0.60) mg/L FEU Sodium (137-145) mmol/L Potassium (3.5-5.1) mmol/L Chloride (98-107) mmol/L Carbon Dioxide (22-30) mmol/L Anion Gap mmol/L BUN (7-17) mg/dL Creatinine (0.52-1.04) mg/dL Est GFR (CKD-EPI)AfAm (>60 ml/min/1.73 sqM) Est GFR (CKD-EPI)NonAf (>60 ml/min/1.73 sqM) Glucose (74-99) mg/dL Plasma Lactic Acid Francisco 1.0 (0.7-2.0) mmol/L Calcium (8.4-10.2) mg/dL Magnesium (1.6-2.3) mg/dL Total Bilirubin (0.2-1.3) mg/dL AST (14-36) U/L ALT (9-52) U/L Alkaline Phosphatase (38-126) U/L Troponin I <0.012 (0.000-0.034) ng/mL Total Protein (6.3-8.2) g/dL Albumin (3.5-5.0) g/dL TSH (0.465-4.680) mIU/L Urine Color Urine Appearance (Clear) Urine pH (5.0-8.0) Ur Specific [place] (1.001-1.035) Urine Protein (Negative) Urine Glucose (UA) (Negative) Urine Ketones (Negative) Urine Blood (Negative) Urine Nitrite (Negative) Urine Bilirubin (Negative) Urine Urobilinogen (<2.0) mg/dL Ur Leukocyte Esterase (Negative) Urine HCG, Qual (Not Detectd) Urine Opiates Screen (NotDetected) Ur Oxycodone Screen (NotDetected) Urine Methadone Screen (NotDetected) Ur Propoxyphene Screen (NotDetected) Ur Barbiturates Screen (NotDetected) U Tricyclic Antidepress (NotDetected) Ur Phencyclidine Scrn (NotDetected) Ur Amphetamines Screen (NotDetected) U Methamphetamines Scrn (NotDetected) U Benzodiazepines Scrn (NotDetected) Urine Cocaine Screen (NotDetected) U Marijuana (THC) Screen (NotDetected) 06/13/18 Range/Units 18:03 WBC (3.8-10.6) k/uL RBC (3.80-5.40) m/uL Hgb (11.4-16.0) gm/dL Hct (34.0-46.0) % MCV (80.0-100.0) fL MCH (25.0-35.0) pg MCHC (31.0-37.0) g/dL RDW (11.5-15.5) % Plt Count (150-450) k/uL Neutrophils % % Lymphocytes % % Monocytes % % Eosinophils % % Basophils % % Neutrophils # (1.3-7.7) k/uL Lymphocytes # (1.0-4.8) k/uL Monocytes # (0-1.0) k/uL Eosinophils # (0-0.7) k/uL Basophils # (0-0.2) k/uL PT (9.0-12.0) sec INR (<1.2) APTT (22.0-30.0) sec D-Dimer (<0.60) mg/L FEU Sodium (137-145) mmol/L Potassium (3.5-5.1) mmol/L Chloride (98-107) mmol/L Carbon Dioxide (22-30) mmol/L Anion Gap mmol/L BUN (7-17) mg/dL Creatinine (0.52-1.04) mg/dL Est GFR (CKD-EPI)AfAm (>60 ml/min/1.73 sqM) Est GFR (CKD-EPI)NonAf (>60 ml/min/1.73 sqM) Glucose (74-99) mg/dL Plasma Lactic Acid Francisco (0.7-2.0) mmol/L Calcium (8.4-10.2) mg/dL Magnesium (1.6-2.3) mg/dL Total Bilirubin (0.2-1.3) mg/dL AST (14-36) U/L ALT (9-52) U/L Alkaline Phosphatase (38-126) U/L Troponin I (0.000-0.034) ng/mL Total Protein (6.3-8.2) g/dL Albumin (3.5-5.0) g/dL TSH (0.465-4.680) mIU/L Urine Color Urine Appearance (Clear) Urine pH (5.0-8.0) Ur Specific [place] (1.001-1.035) Urine Protein (Negative) Urine Glucose (UA) (Negative) Urine Ketones (Negative) Urine Blood (Negative) Urine Nitrite (Negative) Urine Bilirubin (Negative) Urine Urobilinogen (<2.0) mg/dL Ur Leukocyte Esterase (Negative) Urine HCG, Qual Not Detected (Not Detectd) Urine Opiates Screen (NotDetected) Ur Oxycodone Screen (NotDetected) Urine Methadone Screen (NotDetected) Ur Propoxyphene Screen (NotDetected) Ur Barbiturates Screen (NotDetected) U Tricyclic Antidepress (NotDetected) Ur Phencyclidine Scrn (NotDetected) Ur Amphetamines Screen (NotDetected) U Methamphetamines Scrn (NotDetected) U Benzodiazepines Scrn (NotDetected) Urine Cocaine Screen (NotDetected) U Marijuana (THC) Screen (NotDetected) Disposition Clinical Impression: Palpitations Disposition: HOME SELF-CARE Condition: Fair Instructions (If sedation given, give patient instructions): Heart Palpitations (ED) Is patient prescribed a controlled substance at d/c from ED?: No Referrals: Mariya Logan III, MD [Primary Care Provider] - 1-2 days Time of Disposition: 19:55
[2018-06-13 17:56] LABS: Appearance,Urine Clear (Clear); Bilirubin,Urine Negative (Negative); Blood,Urine Negative (Negative); Color,Urine Yellow; Glucose,Urine (UA) Negative (Negative); Ketones,Urine Negative (Negative); Leukocyte Esterase,Urine Negative (Negative); Nitrite,Urine Negative (Negative); Protein,Urine Negative (Negative); Specific Gravity,Urine 1.022 (1.001-1.035); Urobilinogen,Urine <2.0 mg/dL (<2.0)
[2018-06-13 18:09] LABS: Phencyclidine Screen,Urine Not Detected (NotDetected); Urn Cannabinoid Scrn Not Detected (NotDetected)
[2018-06-13 18:10] LABS: Amphetamine Screen,Urine Not Detected (NotDetected); Barbiturate Screen,Urine Not Detected (NotDetected); Benzodiazepines Screen,Urine Detected (NotDetected); Cocaine Screen,Urine Not Detected (NotDetected); Methadone Screen, Urine Not Detected (NotDetected); Opiate Screen,Urine Not Detected (NotDetected); Oxycodone Screen, Urine Detected (NotDetected); Tricyclic Antidepressant,Urine Not Detected (NotDetected)
[2018-06-13 18:22] LABS: ALT 23 U/L (9-52); AST 19 U/L (14-36); Albumin 4.1 g/dL (3.5-5.0); Alkaline Phosphatase 53 U/L (38-126); Anion Gap 7 mmol/L; Blood Urea Nitrogen 12 mg/dL (7-17); Calcium 9.1 mg/dL (8.4-10.2); Carbon Dioxide 20 mmol/L (22-30); Chloride 112 mmol/L (98-107); Glucose 74 mg/dL (74-99); Potassium 4.6 mmol/L (3.5-5.1); Sodium 139 mmol/L (137-145); Total Bilirubin 0.5 mg/dL (0.2-1.3); Total Protein 6.8 g/dL (6.3-8.2)
[2018-06-13 18:27] LABS: Basophils # (A) 0.1 k/uL (0-0.2); Basophils % (A) 1 %; Eosinophils # (A) 0.2 k/uL (0-0.7); Eosinophils % (A) 3 %; HGB 13.5 gm/dL (11.4-16.0); Lymphocytes # (A) 3.2 k/uL (1.0-4.8); Lymphocytes % (A) 42 %; MCHC 31.5 g/dL (31.0-37.0); MCV 95.4 fL (80.0-100.0); Mean Platelet Volume 7.3; Monocytes # (A) 0.4 k/uL (0-1.0); Monocytes % (A) 5 %; Neutrophils # (A) 3.4 k/uL (1.3-7.7); Neutrophils % (A) 46 %; Platelet Count 301 k/uL (150-450); RBC 4.51 m/uL (3.80-5.40); RDW 14.4 % (11.5-15.5); WBC 7.5 k/uL (3.8-10.6)
[2018-06-13 18:38] LABS: D-Dimer 0.57 mg/L FEU (<0.60); INR 0.9 (<1.2); Partial Thromboplastin Time 25.4 sec (22.0-30.0); Prothrombin Time 9.5 sec (9.0-12.0)
--- NOTE | 2018-06-13 19:01 | XR ---
EXAMINATION TYPE: XR lumbar spine 2 or 3V DATE OF EXAM: 06/13/2018 COMPARISON: 05/07/2013 HISTORY: Pain TECHNIQUE: 3 views FINDINGS: Lumbar vertebra have normal spacing and alignment. Posterior elements are intact. Sacroilia c joints appear normal. IMPRESSION: Negative lumbar spine exam. No change.
--- NOTE | 2018-06-13 19:02 | XR ---
EXAMINATION TYPE: XR chest 2V DATE OF EXAM: 06/13/2018 COMPARISON: 06/03/2018 HISTORY: Dysrhythmia TECHNIQUE: Frontal and lateral views of the chest are obtained. FINDINGS: Heart and mediastinum are normal. Lungs are clear. Diaphragm is normal. Bony thorax is nor mal. IMPRESSION: Normal chest. No change.
--- NOTE | 2018-06-13 19:02 | XR ---
EXAMINATION TYPE: XR thoracic spine 2V DATE OF EXAM: 06/13/2018 COMPARISON: 05/07/2013 HISTORY: Pain TECHNIQUE: 3 views FINDINGS: Thoracic vertebra have normal spacing and alignment. Posterior elements are intact. There i s no paraspinal mass. There is no compression fracture. IMPRESSION: Negative thoracic spine exam. No change.
--- NOTE | 2018-06-13 19:27 | CT ---
EXAMINATION TYPE: CT angio chest DATE OF EXAM: 06/13/2018 7:14 PM COMPARISON: None HISTORY: TACHYCARDIA, UPPER BACK PAIN CT DLP: 321.9 mGycm Automated exposure control for dose reduction was used. CONTRAST: CTA scan of the thorax is performed with IV Contrast, patient injected with 100 mL of Isovue 370, pul monary embolism protocol. There are 3-D post processed images.. FINDINGS: The lungs are clear of infiltrate. There is no pleural effusion or pneumothorax. Heart size is normal . There is no pericardial effusion. There is no mediastinal adenopathy. Thoracic aorta is intact with out evidence of aneurysm or dissection. There are no hilar masses. There is normal contrast opacification of the pulmonary arteries. There are no filling defects. IMPRESSION: NORMAL CT ANGIOGRAM OF THE CHEST. NO EVIDENCE OF PULMONARY EMBOLISM.
[2018-06-13 20:46] VITALS: BP 119/88; PULSE 84; RESP 16
== END 2018-06-13 20:30 | disposition home or self-care (01) ==
LOC: EC 16:42
DX: R00.2 Palpitations (principal); R79.1 Abnormal coagulation profile; R00.0 Tachycardia, unspecified; M54.6 Pain in thoracic spine; M54.5 Low back pain; R06.00 Dyspnea, unspecified; R50.9 Fever, unspecified; R11.0 Nausea; F17.200 Nicotine dependence, unspecified, uncomplicated; Z79.3 Long term (current) use of hormonal contraceptives
CPT/HCPCS: 99285; 96374; 96361; 36415; 93005; 85379; 80053; 83605; 83735; 84443; 84484; 85025; 85610; 85730; 81003; 81025; 87040; 80306; 87086; 72070; 72100; 71046; 71275; J2270; Q9967